=== PATIENT | female | born 2000 | race Caucasian/White ===

== ENCOUNTER → 2021-07-24 10:51 | Outpatient (CLI) | payer OTHER, SELFPAY ==
--- NOTE | ~2021-07-24 | US_ITS ---
EXAMINATION: US pelvic complete DATE: 07/24/2021 11:08 INDICATION: Missing IUD string Comparison:No prior studies for comparison. TECHNIQUE: Multiple transabdominal sonographic images of the pelvis performed. FINDINGS: The uterus measures 7.8 x 2.6 x 3.6 cm. The endometrial complex measures 5 mm. IUD is prese nt in the endometrium in expected position. The right ovary measures 4.2 x 2.2 x 2.1 cm and the left ovary measures 2.6 x 1.7 x 1.9 cm. There ar e small follicles in each ovary. Normal doppler signal in both ovaries. There is no free fluid in the pelvis. There are no abnormal masses seen on either side. IMPRESSION: 1. Normal pelvic ultrasound. IUD in expected position. Reviewed, dictated and finalized at location [facility].
== END ==
PROVIDERS: Visit Provider Nurse Practitioner
DX: Z30.431 Encounter for routine checking of intrauterine contraceptive device (principal)
CPT/HCPCS: 76856

== ENCOUNTER → 2023-01-28 12:46 | Outpatient (CLI) | payer OTHER, SELFPAY ==
--- NOTE | ~2023-01-28 | US_ITS ---
Pelvic ultrasound. Clinical History: Abnormal uterine bleeding Technique: Realtime transabdominal and transvaginal scanning of the pelvis was performed. Color flow Doppler and Doppler spectral analysis were performed. Findings: The uterus is anteverted. The endometrial stripe has a thickness of 5 mm. IUD in satisfact ory position. No focal mass is identified. The right ovary measures 2.6 x 3.0 x 3.2 cm. No significant right ovarian or adnexal mass is seen. The left ovary measures 2.7 x 1.8 x 2.9 cm. No significant left ovarian or adnexal mass is seen. Vascular flow present in both ovaries on Doppler spectral analysis. There is no evidence of free fluid in the cul de sac. Impression: IUD in place, otherwise unremarkable exam. Reviewed, dictated and finalized at [facility]. Impression: IUD in place, otherwise unremarkable exam.
== END ==
PROVIDERS: PCP Nurse Practitioner; Visit Provider Nurse Practitioner
DX: N93.8 Other specified abnormal uterine and vaginal bleeding (principal); Z97.5 Presence of (intrauterine) contraceptive device
CPT/HCPCS: 76856